=== PATIENT | female | born 1955 | race Caucasian/White ===

== ENCOUNTER 2019-11-24 07:50 | Outpatient (CLI) | payer BC, SELFPAY ==
--- NOTE | ~2019-11-24 | MM_ITS ---
EXAMINATION: MM screening [facility] BI w osei HISTORY: Screening mammogram TECHNIQUE: Craniocaudal and mediolateral oblique 3-D tomosynthesis images were obtained and synthetic 2-D images were generated. CAD analysis was submitted and interpreted. COMPARISON: 12/01/2018, 11/03/2018, 11/03/2017, 11/02/2016 BREAST PARENCHYMAL COMPOSITION: The breasts are heterogeneously dense, which may obscure small masses . FINDINGS: There is no evidence of suspicious mass, calcification, or architectural distortion to sugg est malignancy in either breast. There has been no suspicious interval change. IMPRESSION: 1. No mammographic evidence of malignancy. 2. Recommend routine screening mammography in one year. BI-RADS Category 1: Negative Reviewed, dictated and finalized at location A. ER
== END 2019-11-24 07:51 | disposition home or self-care (01) ==
PROVIDERS: PCP Family Medicine; Visit Provider Obstetrics & Gynecology
DX: Z12.31 Encounter for screening mammogram for malignant neoplasm of breast (principal)
CPT/HCPCS: 77063; 77067

== ENCOUNTER 2020-12-13 08:48 | Outpatient (CLI) | payer BC, SELFPAY ==
--- NOTE | ~2020-12-13 | DEXA_ITS ---
Bone Density Report Name: Kaylan Jones Age: 65 Sex: Female Ethnicity: White Date of : 1955 Indication: osteopenia; height loss; asthma or emphysema; hysterectomy; Referring Provider: MELODY MOREIRA Study: Bone densitometry was performed. Exam Date: December 13, 2020 Accession number: [id number] Bone Density: Region BMD T-score Z-score Classification AP Spine (L1-L4) 0.735 -2.8 -1.1 Osteoporosis Femoral Neck (Left) 0.625 -2.0 -0.5 Osteopenia Total Hip (Left) 0.783 -1.3 -0.1 Osteopenia Total Hip Bilateral Avg 0.781 -1.3 -0.1 Osteopenia Femoral Neck (Right) 0.637 -1.9 -0.4 Osteopenia Total Hip (Right) 0.779 -1.3 -0.1 Osteopenia World Health Organization criteria for BMD impression classify patients as: Normal (T-score at or above -1.0), Osteopenia (T-score between -1.0 and -2.5), or Osteoporosis (T-score at or below -2.5). 10-year Fracture Risk: FRAX not reported because: Some T-score for Spine Total or Hip Total or Femoral Neck at or below -2.5 Previous Exams: Region Exam Age BMD T-score BMD Change BMD Change Date g/cm2 vs Baseline vs Previous AP Spine(L1-L4) 12/13/2020 65 0.735 -2.8 -0.267(-26.7%) -0.052(-6.5%)* 11/03/2018 63 0.787 -2.4 -0.216(-21.5%) -0.008(-1.0%) 11/02/2016 61 0.795 -2.3 -0.208(-20.7%) -0.040(-4.8%)* 08/29/2014 59 0.835 -1.9 -0.167(-16.7%) -0.030(-3.5%)# 12/25/2011 56 0.866 -1.6 -0.137(-13.7%) -0.111(-11.4%) 09/16/2009 54 0.977 -0.6 -0.026(-2.6%)* -0.026(-2.6%)* 07/22/2007 52 1.003 -0.4 Total Hip(Left) 12/13/2020 65 0.783 -1.3 -0.145(-15.7%) -0.083(-9.6%)* 11/03/2018 63 0.866 -0.6 -0.062(-6.7%)# -0.009(-1.1%) 11/02/2016 61 0.875 -0.5 -0.053(-5.7%)# -0.025(-2.7%) 08/29/2014 59 0.900 -0.3 -0.028(-3.0%)# 0.016(1.8%)# 12/25/2011 56 0.884 -0.5 -0.044(-4.7%)# -0.033(-3.6%)# 09/16/2009 54 0.917 -0.2 -0.011(-1.2%) -0.011(-1.2%) 07/22/2007 52 0.928 -0.1 Total Hip(Right) 12/13/2020 65 0.779 -1.3 -0.144(-15.6%) -0.055(-6.5%)* 11/03/2018 63 0.834 -0.9 -0.090(-9.7%)# -0.004(-0.5%) 11/02/2016 61 0.838 -0.9 -0.085(-9.2%)# -0.039(-4.5%)* 08/29/2014 59 0.877 -0.5 -0.046(-5.0%)# -0.016(-1.8%)# 12/25/2011 56 0.893 -0.4 -0.030(-3.3%)# -0.084(-8.6%)# 09/16/2009 54 0.977 0.3 0.053(5.8%)* 0.053(5.8%)* 07/22/2007 52 0.923 -0.2 *Denotes significance at 95% confidence level, LSC for AP Spine = 0.022 g/cm2, LSC for Total Hip = 0.027 g/cm2 Clinical Information Provided by Patient:
--- NOTE | ~2020-12-13 | MM_ITS ---
EXAMINATION: MM screening [facility] BI w osei HISTORY: Screening mammogram TECHNIQUE: Craniocaudal and mediolateral oblique 3-D tomosynthesis images were obtained and synthetic 2-D images were generated. CAD analysis was submitted and interpreted. COMPARISON: 11/24/2019 bilateral digital screening mammogram 12/01/2018 diagnostic left digital mammogram 11/03/2018, 11/03/2017, 11/02/2016 bilateral digital screening mammogram examinations BREAST PARENCHYMAL COMPOSITION: The breasts are heterogeneously dense, which may obscure small masses . FINDINGS: Subtle microcalcifications are suggested in the upper aspect of each breast on MLO views. D iagnostic magnification views are recommended for better definition. Otherwise there is no evidence of suspicious mass, calcification, or architectural distortion to sugg est malignancy in either breast. There has been no other suspicious interval change. IMPRESSION: 1. Bilateral microcalcifications 2. Bilateral diagnostic mammography with magnification views is recommended BI-RADS Category 0: Incomplete: Needs additional imaging evaluation. Reviewed, dictated and finalized at location A. [employer]
== END 2020-12-13 08:49 | disposition home or self-care (01) ==
PROVIDERS: PCP Family Medicine; Visit Provider Obstetrics & Gynecology
DX: Z12.31 Encounter for screening mammogram for malignant neoplasm of breast (principal); R92.8 Other abnormal and inconclusive findings on diagnostic imaging of breast; M81.0 Age-related osteoporosis without current pathological fracture; M85.852 Other specified disorders of bone density and structure, left thigh; M85.851 Other specified disorders of bone density and structure, right thigh
CPT/HCPCS: 0001A; 77063; 77067; 77080; 91300

== ENCOUNTER 2020-12-13 13:50 | Outpatient (CLI) | payer BC, SELFPAY | END 2020-12-13 13:51 | disposition home or self-care (01) | LOC: ANHCOVIDVC 13:50 | PROVIDERS: PCP Family Medicine | DX: Z23 Encounter for immunization (principal) | CPT/HCPCS: 0001A; 91300 ==

== ENCOUNTER 2021-01-03 13:03 | Outpatient (CLI) | payer BC, SELFPAY | END 2021-01-03 13:04 | disposition home or self-care (01) | LOC: ANHCOVIDVC 13:03 | PROVIDERS: PCP Family Medicine | DX: Z23 Encounter for immunization (principal) | CPT/HCPCS: 0002A; 91300 ==

== ENCOUNTER 2021-01-10 11:17 | Outpatient (CLI) | payer BC, SELFPAY ==
--- NOTE | ~2021-01-10 | MMUS_ITS ---
EXAMINATION: MM diagnostic mammo BI, US breast BI complete HISTORY: Bilateral microcalcifications TECHNIQUE: Additional 3-D tomosynthesis images of both breasts were performed and synthetic 2-D image s were generated. Bilateral magnification views. CAD analysis was submitted and interpreted. High res olution breast ultrasound was performed. COMPARISON: 12/13/2020 bilateral digital screening mammogram FINDINGS: MAMMOGRAPHIC FINDINGS: Minimal benign calcification of the breasts is noted. No malignant calcification is evident. Solid nodular appearing fibroglandular stroma is noted. Bilateral complete breast ultrasound examinat ion was performed. ULTRASOUND: No suspicious mass or shadowing or other significant sonographic finding of either breast is detected . IMPRESSION: 1. No mammographic evidence of malignancy 2. Routine annual mammographic screening is recommended. BI-RADS Category 2: Benign finding(s). Reviewed, dictated and finalized at location A. IMPRESSION: 1. No mammographic evidence of malignancy 2. Routine annual mammographic screening is recommended. BI-RADS Category 2: Benign finding(s).
== END 2021-01-10 11:18 | disposition home or self-care (01) ==
LOC: ANHIMG 11:19
PROVIDERS: PCP Family Medicine; Visit Provider Obstetrics & Gynecology
DX: R92.0 Mammographic microcalcification found on diagnostic imaging of breast (principal)
CPT/HCPCS: 76641; 77066

== ENCOUNTER 2021-02-13 14:30 | Emergency (ER) | payer MEDICARE, SELFPAY ==
--- NOTE | ~2021-02-13 | XR_ITS ---
XR abdomen obstructive series DATE: 02/13/2021 16:31 INDICATION: Constipation TECHNIQUE: Supine and upright AP views COMPARISON: None FINDINGS: Nonspecific bowel gas pattern without evidence of obstruction. No intraperitoneal free air is evident. The psoas shadows are intact. No visceromegaly or significant abnormal calcification is n oted. Incidentally noted is a transitional lumbosacral vertebra. IMPRESSION: Nonspecific abdomen Reviewed, dictated and finalized at Location A. Reviewed, dictated and finalized at location A. IMPRESSION: Nonspecific abdomen
[2021-02-13 14:32] VITALS: BP 125/67; PULSE 76; RESP 18; TEMP 36.2; O2SAT 100
--- NOTE | 2021-02-13 16:48 | ED.GENADULT ---
HPI - General Adult General Chief complaint: Unspecified Stated complaint: SEVERE CONSTIPATION Time Seen by Provider: 02/13/21 16:19 Source: patient Mode of arrival: ambulatory Limitations: no limitations History of Present Illness HPI narrative: Patient presents the emergency department for ongoing constipation over the last couple of weeks. Reports she takes Benefiber daily. Also has taken MiraLAX the last couple of days. Reports she recently increased her dose of her calcium supplement which she thinks is contributing to her constipation. She had a normal sized bowel movement 5 days ago. Reports a small bowel movement yesterday. Denies fever, abdominal pain, vomiting, or hematochezia. Related Data Home Medications Medication Instructions Recorded Confirmed fexofenadine 180 mg tablet 180 mg PO DAILY 11/13/19 11/13/19 fluticasone furoate-vilanterol 1 inh INHALATION DAILY 02/13/21 [Breo Ellipta] Allergies Allergy/AdvReac Type Severity Reaction Status Date / Time No Known Allergies Allergy Verified 02/13/21 16:31 Review of Systems Review of Systems: Narrative: CONSTITUTIONAL: Denies fever GASTROINTESTINAL: Denies abdominal pain, nausea, vomiting All systems reviewed & are unremarkable except as noted in HPI and below PMFSH Past Medical History Medical History (Updated 02/13/21 @ 16:53 by Flower Salinas PA-C) Eczema Encounter for wellness examination in adult Hypothyroidism, unspecified Mixed hyperlipidemia Moderate persistent asthma, uncomplicated Osteopenia after menopause Osteoporosis T-score -2.8 spine, -2.0 left hip and -1.9 right hip on 12/13/2020 Polyp of colon Seasonal allergic rhinitis Trigger finger of thumb (~2014) Vitamin B12 deficiency anemia Surgical History Surgical History (Updated 11/13/19 @ 13:14 by Josette Nation MA) History of hysterectomy (~2003) Family History Family History (Updated 11/13/19 @ 13:18 by Josette Nation MA) Mother Hypertension Thyroid disorder Hyperlipidemia Alzheimer disease Father Diabetes mellitus Heart disease Hypertension Grandparent Heart disease Sibling Hypertension Pancreatitis Social History Social History (Updated 11/14/20 @ 13:22 by Josette Nation MA) Smoking status: Never smoker Alcohol intake: current Substance use: never Substance use type: does not use Exam Narrative: Exam Narrative: GENERAL: Well-appearing, well-nourished, and in no acute distress. HEAD: Normocephalic, atraumatic. EYES: EOMI. CHEST: Clear to auscultation. No respiratory distress. No wheezes rales or rhonchi HEART: Regular rate and rhythm. No murmur heard. Normal peripheral pulses. ABDOMEN: Soft, nontender, nondistended, normal active bowel sounds. EXTREMITIES: Normal range of motion. No edema. SKIN: Warm, dry, no rash. NEURO: No focal deficits. Alert and oriented x3. PSYCH: Normal mood and affect Course Vital Signs Vital signs: Vital Signs Temperature 97.2 F L 02/13/21 14:32 Pulse Rate 76 02/13/21 14:32 Respiratory Rate 18 02/13/21 14:32 Blood Pressure 125/67 02/13/21 14:32 Pulse Oximetry 100 02/13/21 14:32 Temperature 97.2 F L 02/13/21 14:32 Pulse Rate 76 02/13/21 14:32 Respiratory Rate 18 02/13/21 14:32 Blood Pressure 125/67 02/13/21 14:32 Pulse Oximetry 100 02/13/21 14:32 Medical Decision Making MDM Narrative Medical decision making narrative: Patient presents the emergency department for her ongoing issues with constipation over the last couple of weeks. He is afebrile and nontoxic-appearing. Abdominal exam is benign. Abdomen x-ray is without acute findings. Patient was instructed on care of constipation. She is to follow-up with her primary care doctor. She was given warnings to return to the ER Vital Signs Vital Signs: Vital Signs Temperature 97.2 F L 02/13/21 14:32 Pulse Rate 76 02/13/21 14:32 Respiratory Rate 18
== END 2021-02-13 16:58 | disposition home or self-care (01) ==
PROVIDERS: Emergency Provider Emergency Medicine; PCP Family Medicine
DX: K59.00 Constipation, unspecified (principal); E03.9 Hypothyroidism, unspecified; E78.2 Mixed hyperlipidemia; J45.40 Moderate persistent asthma, uncomplicated; M85.80 Other specified disorders of bone density and structure, unspecified site; M81.0 Age-related osteoporosis without current pathological fracture; D51.9 Vitamin B12 deficiency anemia, unspecified
CPT/HCPCS: 74019; 99283

== ENCOUNTER → 2021-09-01 08:53 | Outpatient (CLI) | payer MEDICARE, SELFPAY ==
--- NOTE | ~2021-09-01 | US_ITS ---
EXAMINATION: US thyroid EXAM DATE: 09/01/2021 09:36 INDICATION: Nontoxic goiter, unspecified. TECHNIQUE: Multiple grayscale and Doppler images of the thyroid were obtained (by a technologist who performed the scan) and subsequently reviewed. Individual nodules and recommendations may be reporte d in accordance with TI-RADS system as designated by the 2017 ACR White Paper TI-RADS committee. Comp rosa is made to prior examination from 04/29/2005. FINDINGS: Right thyroid lobe measures 3.4 x 1.2 x 1.1 cm, the left measuring 3.3 x 1.2 x 1.0 cm. There are priscilla ral subcentimeter thyroid category TR 4 nodules. Some echogenic foci in the left thyroid lobe nodule deep [place] of cystic components, typical of colloid cyst. IMPRESSION: Small thyroid nodules; Return to clinical follow-up and if additional palpable abnormalit y develops a repeat ultrasound can be obtained. Reviewed, dictated and finalized at location A. ING INSPECTOR IMPRESSION: Small thyroid nodules; Return to clinical follow-up and if addition al palpable abnormality develops a repeat ultrasound can be obtained.
== END ==
PROVIDERS: PCP Family Medicine; Visit Provider Internal Medicine Endocrinology, Diabetes & Metabolism
DX: E04.9 Nontoxic goiter, unspecified (principal)
CPT/HCPCS: 76536

== ENCOUNTER 2021-12-19 15:25 | Outpatient (CLI) | payer MEDICARE, SELFPAY ==
--- NOTE | ~2021-12-19 | MM_ITS ---
EXAMINATION: MM screening [facility] BI w osei HISTORY: Screening mammogram TECHNIQUE: Craniocaudal and mediolateral oblique 3-D tomosynthesis images were obtained and synthetic 2-D images were generated. Bilateral rotated lateral craniocaudal views. CAD analysis was submitted and interpreted. COMPARISON: bilateral diagnostic mammography and bilateral complete breast ultrasound 12/13/2020, 11/24/2019 bilateral screening mammogram examinations BREAST PARENCHYMAL COMPOSITION: The breasts are heterogeneously dense, which may obscure small masses . FINDINGS: There is no evidence of suspicious mass, calcification, or architectural distortion to sugg est malignancy in either breast. There has been no suspicious interval change. IMPRESSION: 1. No mammographic evidence of malignancy. 2. Recommend routine screening mammography in one year. BI-RADS Category 1: Negative Reviewed, dictated and finalized at location A.
== END 2021-12-19 15:26 | disposition home or self-care (01) ==
LOC: ANHIMG 15:26
PROVIDERS: PCP Family Medicine; Visit Provider Obstetrics & Gynecology
DX: Z12.31 Encounter for screening mammogram for malignant neoplasm of breast (principal)
CPT/HCPCS: 77063; 77067

== ENCOUNTER 2022-11-16 11:15 | Outpatient (CLI) | payer MEDICARE, SELFPAY ==
--- NOTE | 2022-11-16 11:30 | ECG_ITS ---
Measurements Intervals [place] Rate: 65 P: 69 ND: 136 QRS: -40 QRSD: 99 T: 42 QT: 401 QTc: 418 Interpretive Statements SINUS RHYTHM LEFT ANTERIOR SUPERIOR HEMIBLOCK MINIMAL ST DEPRESSION [0.025+ mV ST DEPRESSION] ABNORMAL ECG NO PREVIOUS ECG AVAILABLE FOR COMPARISON Electronically Signed On 11-16-2022 12:18:32 PAINTER HAND by Osmar Fong M.D.
== END 2022-11-16 11:16 | disposition home or self-care (01) ==
LOC: ANHCARD 11:17
PROVIDERS: PCP Family Medicine; Visit Provider Nurse Practitioner Family
DX: R07.9 Chest pain, unspecified (principal); R00.2 Palpitations; R94.31 Abnormal electrocardiogram [ECG] [EKG]
CPT/HCPCS: 93005

== ENCOUNTER 2022-11-24 09:25 | Outpatient (CLI) | payer MEDICARE, SELFPAY ==
--- NOTE | 2022-11-24 09:30 | EST_ITS ---
Patient Info Name: Kaylan Jones Age: 67 years : 1955 Gender: Female Ht: 63 in Wt: 115 lbs BSA: 1.52 m2 HR: 69 bpm BP: 135 / 90 mmHg Heart Rhythm: Sinus Rhythm Exam Date: 11/24/2022 9:51 AM Exam Location: [facility] Stress Patient Status: Outpatient Admit Date: 11/24/2022 Staff Ordering Physician: Jasmyne Phelps NP Attending Provider: Yonny Andino MD Exercise Technologist: Taina Hong CT Exercise Physician: Demetris Meyer DO Exam Type: CA stress test treadmill Study Info Indications R07.9 - Chest pain, unspecified R94.31 - Abnormal electrocardiogram ECG EKG A treadmill exercise stress test was performed. Summary 1. 1. Negative Renzo exercise stress test for ischemic ST changes by ECG criteria. 2. 2. Reduced functional capacity, achieving 7 METs of workload. 3. 3. Hypertensive response to exercise. 4. 4. Appropriate HR response to exercise. 5. 5. Appropriate HR recovery at 1 minute post exercise. 6. 6. No imaging with stress testing. 7. 7. Patient informed of the above results. Protocol: Renzo Stress ECG Details Stage: REST Duration (min): 1 min : 50 sec Speed (mph): 0.0 Grade (%): 0 HR (bpm): 71 SBP (mmHg): 135 DBP (mmHg): 90 METS: --- Stage: REST Duration (min): 5 min : 48 sec Speed (mph): 0.0 Grade (%): 0 HR (bpm): 75 SBP (mmHg): 135 DBP (mmHg): 90 METS: --- Stage: STAGE 1 Duration (min): 1 min : 0 sec Speed (mph): 1.7 Grade (%): 10 HR (bpm): 109 SBP (mmHg): 135 DBP (mmHg): 90 METS: --- Stage: STAGE 1 Duration (min): 2 min : 0 sec Speed (mph): 1.7 Grade (%): 10 HR (bpm): 121 SBP (mmHg): 135 DBP (mmHg): 90 METS: --- Stage: STAGE 1 Duration (min): 3 min : 0 sec Speed (mph): 1.7 Grade (%): 10 HR (bpm): 134 SBP (mmHg): 195 DBP (mmHg): 91 METS: --- Stage: STAGE 2 Duration (min): 1 min : 0 sec Speed (mph): 2.5 Grade (%): 12 HR (bpm): 139 SBP (mmHg): 195 DBP (mmHg): 91 METS: --- Stage: STAGE 2 Duration (min): 2 min : 0 sec Speed (mph): 2.5 Grade (%): 12 HR (bpm): 152 SBP (mmHg): 206 DBP (mmHg): 91 METS: --- Stage: STAGE 2 Duration (min): 2 min : 8 sec Speed (mph): 2.5 Grade (%): 12 HR (bpm): 154 SBP (mmHg): 206 DBP (mmHg): 91 METS: --- Stage: RECOVERY Duration (min): 0 min : 51 sec Speed (mph): 0.0 Grade (%): 0 HR (bpm): 131 SBP (mmHg): 206 DBP (mmHg): 91 METS: --- Stage: RECOVERY Duration (min): 1 min : 51 sec Speed (mph): 0.0 Grade (%): 0 HR (bpm): 109 SBP (mmHg): 206 DBP (mmHg): 91 METS: --- Stage: RECOVERY Duration (min): 2 min : 51 sec Speed (mph): 0.0 Grade (%): 0 HR (bpm): 102 SBP (mmHg): 158 DBP (mmHg): 90 METS: --- Stage: RECOVERY Duration (min): 2 min : 59 sec Speed (mph): 0.0 Grade (%): 0 HR (bpm
--- NOTE | 2022-11-25 15:25 | WPDHOLTEREM ---
Holter/Event Monitor Holter/Event Monitor Date of procedure: 11/24/22 Holter/Event Procedure: 24 Hr Holter Monitor Indications: Palpitations Conclusion: 1. 24 hour holter monitor on 11/24/22. 2. Underlying is sinus rhythm. HR range 41-156 bpm; average HR 70 bpm. HR at 156 bpm was at 13:10. 3. There are 74 premature supraventricular complexes and 4 supraventricular couplets. No supraventricular tachycardia. 4. There are 44 premature ventricular complexes. No ventricular tachycardia. 5. No sinoatrial or atrioventricular blocks. No significant pauses greater than 2 seconds. 6. Patient report symptoms of chest pain and fluttering which demonstrate sinus rhythm, HR range 57-129 bpm.
== END 2022-11-24 09:26 | disposition home or self-care (01) ==
PROVIDERS: PCP Family Medicine; Visit Provider Family Medicine
DX: R94.31 Abnormal electrocardiogram [ECG] [EKG] (principal); R07.9 Chest pain, unspecified; R00.2 Palpitations
CPT/HCPCS: 93017; 93225; 93226

== ENCOUNTER 2022-12-21 08:42 | Outpatient (CLI) | payer MEDICARE, SELFPAY ==
--- NOTE | ~2022-12-21 | DEXA_ITS ---
Bone Density Report Name: ROC ARELLANO Age: 67 Sex: Female Ethnicity: White Date of : 1955 Indication: postmenopausal osteoporosis; height loss; Referring Provider: FAHAD, JAYSON Padron Study: Bone densitometry was performed. Exam Date: December 21, 2022 Accession number: [id number] Bone Density: Region BMD T-score Z-score Classification AP Spine(L1-L4) 0.762 -2.6 -0.7 Osteoporosis Femoral Neck (Left) 0.617 -2.1 -0.5 Osteopenia Total Hip (Left) 0.760 -1.5 -0.2 Osteopenia Femoral Neck (Right) 0.632 -2.0 -0.3 Osteopenia Total Hip (Right) 0.752 -1.6 -0.2 Osteopenia Total Hip Mean 0.756 -1.6 -0.2 Osteopenia World Health Organization criteria for BMD impression classify patients as: Normal (T-score at or above -1.0), Osteopenia (T-score between -1.0 and -2.5), or Osteoporosis (T-score at or below -2.5). 10-year Fracture Risk: FRAX not reported because: Some T-score for Spine Total or Hip Total or Femoral Neck at or below -2.5 Previous Exams: Region Exam Age BMD T-score BMD Change BMD Change Date g/cm2 vs Baseline vs Previous AP Spine (L1-L4) 12/21/2022 67 0.762 -2.6 -0.033 (-4.2%) 0.027 (3.6%)* 12/13/2020 65 0.735 -2.8 -0.060 (-7.5%) -0.052 (-6.5%) 11/03/2018 63 0.787 -2.4 -0.008 (-1.0%) -0.008 (-1.0%) 11/02/2016 61 0.795 -2.3 Total Hip(Left) 12/21/2022 67 0.760 -1.5 -0.115 (-13.1% -0.023 (-2.9%) 12/13/2020 65 0.783 -1.3 -0.092 (-10.6% -0.083 (-9.6%) 11/03/2018 63 0.866 -0.6 -0.009 (-1.1%) -0.009 (-1.1%) 11/02/2016 61 0.875 -0.5 Total Hip(Right) 12/21/2022 67 0.752 -1.6 -0.086 (-10.3% -0.027 (-3.5%) 12/13/2020 65 0.779 -1.3 -0.059 (-7.0%) -0.055 (-6.5%) 11/03/2018 63 0.834 -0.9 -0.004 (-0.5%) -0.004 (-0.5%) 11/02/2016 61 0.838 -0.9 *Denotes significance at 95% confidence level, LSC for AP Spine = 0.022 g/cm2, LSC for Total Hip = 0.027 g/cm2 Clinical Information Provided by Patient: Has used the following medications: Vitamin D, Calcium Patient maximum height was 63.5 Menopause Age: 49 Drinks caffeinated beverages Onset of menses at age 12 Number of children 1 Impression: UNAPPROVED The patient has osteoporosis, based on the Total Spine T-score. The BMD for the Total Hip(Right) decreased, changing by -3.5% since the last DXA exam. Discussion: UNAPPROVED INCREASED RISK OF FRACTURE. BONE DENSITY IS UNDESIRABLY LOW AT ONE OR MORE SKELETAL SITES, CONSISTENT WITH POST
== END 2022-12-21 08:43 | disposition home or self-care (01) ==
PROVIDERS: PCP Family Medicine; Visit Provider Internal Medicine Endocrinology, Diabetes & Metabolism
DX: M81.0 Age-related osteoporosis without current pathological fracture (principal); M85.852 Other specified disorders of bone density and structure, left thigh; M85.851 Other specified disorders of bone density and structure, right thigh
CPT/HCPCS: 77080

== ENCOUNTER 2022-12-21 08:45 | Outpatient (CLI) | payer MEDICARE, SELFPAY ==
--- NOTE | ~2022-12-21 | MM_ITS ---
EXAMINATION: MM screening [facility] BI w osei HISTORY: Screening TECHNIQUE: Craniocaudal and mediolateral oblique 3-D tomosynthesis images were obtained and synthetic 2-D images were generated. CAD analysis was submitted and interpreted. COMPARISON: Comparison to multiple prior studies sequentially, with oldest reviewed study dated 11/03. BREAST PARENCHYMAL COMPOSITION: The breasts are heterogeneously dense, which may obscure small masses FINDINGS: There is no evidence of suspicious mass, calcification, or architectural distortion to sugg est malignancy in either breast. There has been no suspicious interval change. IMPRESSION: 1. No mammographic evidence of malignancy. 2. Recommend routine screening mammography in one year. BI-RADS Category 1: Negative Reviewed, dictated and finalized at location A.
== END 2022-12-21 08:46 | disposition home or self-care (01) ==
LOC: ANHIMG 08:46
PROVIDERS: PCP Family Medicine; Visit Provider Obstetrics & Gynecology
DX: Z12.31 Encounter for screening mammogram for malignant neoplasm of breast (principal)
CPT/HCPCS: 77063; 77067; 77080

== ENCOUNTER 2024-02-18 07:11 | Outpatient (CLI) | payer MEDICARE, SELFPAY ==
--- NOTE | ~2024-02-18 | MM_ITS ---
EXAMINATION: MM screening [facility] BI w osei HISTORY: Screening mammogram TECHNIQUE: Craniocaudal and mediolateral oblique 3-D tomosynthesis images were obtained and synthetic 2-D images were generated. CAD analysis was submitted and interpreted. COMPARISON: 12/21/2022, 12/19/2021 bilateral screening mammogram examinations BREAST PARENCHYMAL COMPOSITION: The breasts are heterogeneously dense, which may obscure small masses . FINDINGS: There is no evidence of suspicious mass, calcification, or architectural distortion to sugg est malignancy in either breast. There has been no suspicious interval change. IMPRESSION: 1. No mammographic evidence of malignancy. 2. Routine annual mammographic screening is recommended. BI-RADS Category 1: Negative Reviewed, dictated and finalized at location B.
== END 2024-02-18 07:12 | disposition home or self-care (01) ==
PROVIDERS: PCP Family Medicine; Visit Provider Obstetrics & Gynecology
DX: Z12.31 Encounter for screening mammogram for malignant neoplasm of breast (principal)
CPT/HCPCS: 77063; 77067

== ENCOUNTER 2025-02-19 08:41 | Outpatient (CLI) | payer MEDICARE, SELFPAY ==
--- OUTSIDE RECORDS SUMMARY | 2025-02-19 08:49 | XMS_ITS | Data Portability ---
Author Organization [facility] [place], Main Office Address [address] [place] [address] Assessment No assessment recorded. Plan of Treatment Reminders Order Date Submit Date Provider Last Modified By Organization Details Last Modified Time Details Appointments None recorded. Lab dexamethaso ne, serum 2022 023 [facility], [address], [place], [address], 3 09:03:42 cortisol, am, serum 2022 023 [facility], [address], [place], [address], 3 09:03:43 TSH + free T4, serum 2022 023 [facility], [address], [place], [address], 3 17:25:50 T3, free, serum or plasma 2022 023 [facility], [address], [place], [address], 3 17:25:49 vitamin B12 + folate, serum or blood 2022 023 [facility], [address], [place], [address], 3 17:25:48 CMP, serum or plasma 2022 023 [facility], [address], [place], [address], 3 17:25:46 Referral endocrinolo gy referral 2022 023 rosa maria Christine MD, [address], [address], [address], 3 12:09:58 Procedures None recorded. Surgeries None recorded. Imaging None recorded. Medication Orders Euthyrox 50 mcg tablet 2022 023 [id number], [address] [place], [address], 3 12:02:39 liothyronin e 5 mcg tablet 2022 023 [id number], [address] [place], [address], 3 12:03:03 dexamethaso ne 1 mg tablet 2022 023 [facility], [address] [place], [address], 3 12:09:00 Patient TargetsNo targets recorded. Patient InstructionsNo instructions recorded. Reason for Referral Endocrinology Referral for P ostmenopausal osteoporosis Referring Physician: Dulce Maria Garcia, Endocrinology, Encounter Date: 06/10/2023 Results Created Date Observation Date Name Description Value Unit Range Abnormal Flag Note LastModifiedBy Organization Detail LastModifiedTime 09/02/20 21 09/03/2021 TSH+F REE T4 TSH 0.48 mIU/L 0.40-4 .50 normal Not Available [facility] [address] [address], [place], [address], 09/03/2021 17:06:49 09/02/20 21 09/03/2021 TSH+F REE T4 T4, free 1.6 NG/dL 0.8-1. 8 normal Not Available [address] [address] [place], [address], 09/03/2021 17:06:49 09/02/20 21 09/03/2021 VITAM IN D,25- OH,TO SURAJ,I A vitamin D,25-oh,tota l,ia 43 NG/mL 30-100 normal Vitam in D Statu s 25-OH Vitam in D: Defic iency : <20 ng/mL Insuf ficie ncy: 20 - 29 ng/mL Optim al: > or = 30 ng/mL For 25-OH Vitam in D testi ng on patie nts on D2-zavala pplem entat ion and patie nts for whom quant itati on of D2 and D3 fract ions is requi red, the [facility] Assur eD(TM ) 25-OH VIT D, (D2,D 3), LC/MS /MS is recom batool d: order code 82994 (analilia ents >2yrs ). See Note 1 Note 1 For addit ional infor susan ruiz e refer to http: //[facility] Matt stDia gnost ics.c om/fa q/FAQ 199 (This link is being provi ded for infor ida carlson/ jose g key purpo ses only. ) Not Available [facility] [address] [address] [address], [place], [address], 09/03/2021 17:06:48 09/02/20 21 09/03/2021 T3, FREE T3, free 3.1 pg/mL 2.3-4. 2 normal Not Available [facility] [address] [address] [place], [address], 09/03/2021 17:06:47 09/02/20 21 09/03/2021 CORTI ABI, A.M. cortisol, A.M. 16.4 mcg/d L normal Refer ence Range 8 a.m. (7-9 a.m.) Speci men: 4.0-2 2.0 Not Available [facility] [address] [address] [place], [address], 09/03/2021 17:06:46 09/02/20 21 09/03/2021 THYRO ID PEROX IDASE ANTIB ODIES thyroid peroxidase antibodies 7 IU/mL <9 normal Not Available [address] [address] [place], [address], 09/03/2021 17:06:45 09/02/20 21 09/03/2021 COMPR EHENS SESAR METAB OLIC PANEL glucose 75 mg/dL 65-99 normal Fasti ng refer ence inter avtar Not Available [address], [address], 09/03/2021 17:06:45 09/02/20 21 09/03/2021 COMPR EHENS SESAR METAB OLIC PANEL urea nitrogen (BUN) 16 mg/dL 7-25 normal Not Available [address], [address], 09/03/2021 17:06:45 09/02/20 21 09/03/2021 COMPR EHENS SESAR METAB OLIC PANEL creatinine 0.73 mg/dL 0.50-0 .99 normal For patie nts >49 years of age, the refer ence limit for Creat inine is appro ximat jayjay 13% highe r for peopl e ident ified as Afric an-Am ashtyn n. Not Available [address] [address] [place], [address], 09/03/2021 17:06:45 09/02/20 21 09/03/2021 COMPR EHENS SESAR METAB OLIC PANEL eGFR non-afr. senegalese 86 mL/mi n/1.7 3m2 > or = 60 normal Not Available [address] [address] [place], [address], 09/03/2021 17:06:45 09/02/20 21 09/03/2021 COMPR EHENS SESAR METAB OLIC PANEL eGFR 100 mL/mi n/1.7 3m2 > or = 60 normal Not Available [address], [address], 09/03/2021 17:06:45 09/02/20 21 09/03/2021 COMPR EHENS SESAR METAB OLIC PANEL BUN/creatini ne ratio not applic able (calc ) 6-22 Not Available [address], [address], 09/03/2021 17:06:45 09/02/20 21 09/03/2021 COMPR EHENS SESAR METAB OLIC PANEL sodium 142 mmol/ L 135-14 6 normal Not Available [address], [address], 09/03/2021 17:06:45 09/02/20 21 09/03/2021 COMPR EHENS SESAR METAB OLIC PANEL potassium 3.5 mmol/ L 3.5-5. 3 normal Not Available [address], [address], 09/03/2021 17:06:45 09/02/20 21 09/03/2021 COMPR EHENS SESAR METAB OLIC PANEL chloride 106 mmol/ L 98-110 normal Not Available [address], [address], 09/03/2021 17:06:45 09/02/20 21 09/03/2021 COMPR EHENS SESAR METAB OLIC PANEL carbon dioxide 29 mmol/ L 20-32 normal Not Available [address], [address], 09/03/2021 17:06:45 09/02/20 21 09/03/2021 COMPR EHENS SESAR METAB OLIC PANEL calcium 9.3 mg/dL 8.6-10 .4 normal Not Available [address] [place], [address], 09/03/2021 17:06:45 09/02/20 21 09/03/2021 COMPR EHENS SESAR METAB OLIC PANEL protein, total 6.3 g/dL 6.1-8. 1 normal Not Available [address], [address], 09/03/2021 17:06:45 09/02/20 21 09/03/2021 COMPR EHENS SESAR METAB OLIC PANEL albumin 4.3 g/dL 3.6-5. 1 normal Not Available [address], [address], 09/03/2021 17:06:45 09/02/20 21 09/03/2021 COMPR EHENS SESAR METAB OLIC PANEL globulin 2.0 g/dL_ (calc ) 1.9-3. 7 normal Not Available [address], [address], 09/03/2021 17:06:45 09/02/20 21 09/03/2021 COMPR EHENS SESAR METAB OLIC PANEL albumin/glob ulin ratio 2.2 (calc ) 1.0-2. 5 normal Not Available [address], [address], 09/03/2021 17:06:45 09/02/20 21 09/03/2021 COMPR EHENS SESAR METAB OLIC PANEL bilirubin, total 1.5 mg/dL 0.2-1. 2 high Not Available [address], [address], 09/03/2021 17:06:45 09/02/20 21 09/03/2021 COMPR EHENS SESAR METAB OLIC PANEL alkaline phosphatase 63 U/L 37-153 normal Not Available [address] [address] [place], [address], 09/03/2021 17:06:45 09/02/20 21 09/03/2021 COMPR EHENS SESAR METAB OLIC PANEL AST 22 U/L 10-35 normal Not Available [address], [address], 09/03/2021 17:06:45 09/02/20 21 09/03/2021 COMPR EHENS SESAR METAB OLIC PANEL ALT 26 U/L 6-29 normal Not Available [address], [address], 09/03/2021 17:06:45 09/02/20 21 09/03/2021 PTH, INTAC T AND CALCI UM parathyroid hormone, intact 27 pg/mL 14-64 normal Inter preti ve Guide Intac t PTH Calci um ----- ----- ----- --- ----- ----- ----- -- Jamila l Parat hyroi d Jamila l Jamila l Hypop bebe yroid ism Low or Low Jamila l Low Hyper parat hyroi dism Prima ry Jamila l or High High Secon amy High Jamila l or Low Terti filippo High High Non-P bebe yroid Hyper calce julito Low or Low Jamila l High Not Available [address], [address], 09/03/2021 17:06:44 09/02/20 21 09/03/2021 PTH, INTAC T AND CALCI UM calcium 9.3 mg/dL 8.6-10 .4 normal Not Available [address], [address], 09/03/2021 17:06:44 09/08/20 21 09/09/2021 CALCI UM, 24 HOUR URINE (W/ CREAT ININE ) calcium/crea tinine ratio 285 mg/g_ creat 30-275 high Not Available [address], [address], 09/09/2021 13:56:56 09/08/20 21 09/09/2021 CALCI UM, 24 HOUR URINE (W/ CREAT ININE ) calcium, 24 hour urine 236 mg/24 _h normal Refer ence Range 35-25 0 Low calci um diet 35-20 0 Not Available [address], [address], 09/09/2021 13:56:56 09/08/20 21 09/09/2021 CALCI UM, 24 HOUR URINE (W/ CREAT ININE ) creatinine, 24 hour urine 0.83 g/24_ h 0.50-2 .15 normal Not Available [facility] [address], [address], 09/09/2021 13:56:56 04/17/20 22 04/18/2022 TSH+F REE T4 TSH 0.83 mIU/L 0.40-4 .50 normal Not Available [address], [address], 04/18/2022 04:20:26 04/17/20 22 04/18/2022 TSH+F REE T4 T4, free 1.4 NG/dL 0.8-1. 8 normal Not Available [address], [address], 04/18/2022 04:20:26 04/17/20 22 04/18/2022 VITAM IN D,25- OH,TO SURAJ,I A vitamin D,25-oh,tota l,ia 57 NG/mL 30-100 normal Vitam in D Statu s 25-OH Vitam in D: Defic iency : <20 ng/mL Insuf ficie ncy: 20 - 29 ng/mL Optim al: > or = 30 ng/mL For 25-OH Vitam in D testi ng on patie nts on D2-zavala pplem entat ion and patie nts for whom quant itati on of D2 and D3 fract ions is requi red, the [facility] Assur eD(TM ) 25-OH VIT D, (D2,D 3), LC/MS /MS is recom batool d: order code 79619 (analilia ents >2yrs ). See Note 1 Note 1 For addit ional infor susan ruiz refer to http: //[facility] luciano ics.c om/fa q/FAQ 199 (This link is being provi ded for infor ida carlson/ jose g key purpo ses only. ) Not Available [address], [address], 04/18/2022 04:20:26 04/17/20 22 04/18/2022 T3, FREE T3, free 2.6 pg/mL 2.3-4. 2 normal Not Available [address], [address], 04/18/2022 04:20:25 04/17/20 22 04/18/2022 COMPR EHENS SESAR METAB OLIC PANEL glucose 82 mg/dL 65-99 normal Fasti ng refer ence inter avtar Not Available [address], [address], 04/18/2022 04:20:25 04/17/20 22 04/18/2022 COMPR EHENS SESAR METAB OLIC PANEL urea nitrogen (BUN) 20 mg/dL 7-25 normal Not Available [address], [address], 04/18/2022 04:20:25 04/17/20 22 04/18/2022 COMPR EHENS SESAR METAB OLIC PANEL creatinine 0.84 mg/dL 0.50-1 .05 normal Not Available [address], [address], 04/18/2022 04:20:25 04/17/20 22 04/18/2022 COMPR EHENS SESAR METAB OLIC PANEL eGFR 77 mL/mi n/1.7 3m2 > or = 60 normal The eGFR is based on the CKD-E PI 2020 equat ion. To calcu late the new eGFR from a previ ous Creat inine or Cysta tin C resul t, go to https ://skip armenta.dinora gramajo/eduard pastrana s/ kdoqi /gfr% 5Fcal culat or Not Available [address], [address], 04/18/2022 04:20:25 04/17/20 22 04/18/2022 COMPR EHENS SESAR METAB OLIC PANEL BUN/creatini ne ratio not applic able (calc ) 6-22 Not Available [address], [address], 04/18/2022 04:20:25 04/17/20 22 04/18/2022 COMPR EHENS SESAR METAB OLIC PANEL sodium 143 mmol/ L 135-14 6 normal Not Available [address], [address], 04/18/2022 04:20:25 04/17/20 22 04/18/2022 COMPR EHENS SESAR METAB OLIC PANEL potassium 4.1 mmol/ L 3.5-5. 3 normal Not Available [address], [address], 04/18/2022 04:20:25 04/17/20 22 04/18/2022 COMPR EHENS SESAR METAB OLIC PANEL chloride 106 mmol/ L 98-110 normal Not Available [address], [address], 04/18/2022 04:20:25 04/17/20 22 04/18/2022 COMPR EHENS SESAR METAB OLIC PANEL carbon dioxide 30 mmol/ L 20-32 normal Not Available [address], [address], 04/18/2022 04:20:25 04/17/20 22 04/18/2022 COMPR EHENS SESAR METAB OLIC PANEL calcium 9.4 mg/dL 8.6-10 .4 normal Not Available [facility] [address], [address], 04/18/2022 04:20:25 04/17/20 22 04/18/2022 COMPR EHENS SESAR METAB OLIC PANEL protein, total 6.8 g/dL 6.1-8. 1 normal Not Available [address], [address], 04/18/2022 04:20:25 04/17/20 22 04/18/2022 COMPR EHENS SESAR METAB OLIC PANEL albumin 4.4 g/dL 3.6-5. 1 normal Not Available [address], [address], 04/18/2022 04:20:25 04/17/20 22 04/18/2022 COMPR EHENS SESAR METAB OLIC PANEL globulin 2.4 g/dL_ (calc ) 1.9-3. 7 normal Not Available [address], [address], 04/18/2022 04:20:25 04/17/20 22 04/18/2022 COMPR EHENS SESAR METAB OLIC PANEL albumin/glob ulin ratio 1.8 (calc ) 1.0-2. 5 normal Not Available [address], [address], 04/18/2022 04:20:25 04/17/20 22 04/18/2022 COMPR EHENS SESAR METAB OLIC PANEL bilirubin, total 1.5 mg/dL 0.2-1. 2 high Not Available [facility] [address], [address], 04/18/2022 04:20:25 04/17/20 22 04/18/2022 COMPR EHENS SESAR METAB OLIC PANEL alkaline phosphatase 44 U/L 37-153 normal Not Available [facility] [address], [address], 04/18/2022 04:20:25 04/17/20 22 04/18/2022 COMPR EHENS SESAR METAB OLIC PANEL AST 16 U/L 10-35 normal Not Available [address], [address], 04/18/2022 04:20:25 04/17/20 22 04/18/2022 COMPR EHENS SESAR METAB OLIC PANEL ALT 12 U/L 6-29 normal Not Available [address], [address], 04/18/2022 04:20:25 04/17/20 22 04/18/2022 PTH, INTAC T AND CALCI UM parathyroid hormone, intact 31 pg/mL 16 normal Inter preti ve Guide Intac t PTH Calci um ----- ----- ----- --- ----- ----- ----- -- Jamila l Parat hyroi d Jamila l Jamila l Hypop bebe yroid ism Low or Low Jamila l Low Hyper parat hyroi dism Prima ry Jamila l or High High Secon amy High Jamila l or Low Terti filippo High High Non-P bebe yroid Hyper calce julito Low or Low Jamila l High Not Available [address], [address], 04/18/2022 04:20:24 04/17/20 22 04/18/2022 PTH, INTAC T AND CALCI UM calcium 9.4 mg/dL 8.6-10 .4 normal Not Available [address], [address], 04/18/2022 04:20:24 12/29/19 23 12/29/2022 PTH, INTAC T AND CALCI UM parathyroid hormone, intact 33 pg/mL 16 normal Inter preti ve Guide Intac t PTH Calci um ----- ----- ----- --- ----- ----- ----- -- Jamila l Parat hyroi d Jamila l Jamila l Hypop bebe yroid ism Low or Low Jamila l Low Hyper parat hyroi dism Prima ry Jamila l or High High Secon amy High Jamila l or Low Terti filippo High High Non-P bebe yroid Hyper calce julito Low or Low Jamila l High Not Available [address], [address], 12/29/2022 17:59:21 12/29/19 23 12/29/2022 PTH, INTAC T AND CALCI UM calcium 9.7 mg/dL 8.6-10 .4 normal Not Available [address], [address], 12/29/2022 17:59:21 12/29/19 23 12/29/2022 PHOSP HATE ( PHOSP HORUS ) phosphate ( phosphorus) 3.9 mg/dL 2.1-4. 3 normal Not Available [address], [address], 12/29/2022 17:59:22 12/29/19 23 12/29/2022 COMPR EHENS SESAR METAB OLIC PANEL glucose 78 mg/dL 65-99 normal Fasti ng refer ence inter avtar Not Available [address], [address], 12/29/2022 17:59:22 12/29/19 23 12/29/2022 COMPR EHENS SESAR METAB OLIC PANEL urea nitrogen (BUN) 20 mg/dL 7-25 normal Not Available [address], [address], 12/29/2022 17:59:22 12/29/19 23 12/29/2022 COMPR EHENS SESAR METAB OLIC PANEL creatinine 0.84 mg/dL 0.50-1 .05 normal Not Available [address], [address], 12/29/2022 17:59:22 12/29/19 23 12/29/2022 COMPR EHENS SESAR METAB OLIC PANEL eGFR 77 mL/mi n/1.7 3m2 > or = 60 normal The eGFR is based on the CKD-E PI 2020 equat ion. To calcu late the new eGFR from a previ ous Creat inine or Cysta tin C resul t, go to https ://skip w.marti portilloy.o avila/pr isaakess gamalielal s/ kdoqi /gfr% 5Fcal culat or Not Available [address], [address], 12/29/2022 17:59:22 12/29/19 23 12/29/2022 COMPR EHENS SESAR METAB OLIC PANEL BUN/creatini ne ratio NOT APPLIC ABLE (calc ) 6-22 Not Available [address], [address], 12/29/2022 17:59:22 12/29/19 23 12/29/2022 COMPR EHENS SESAR METAB OLIC PANEL sodium 138 mmol/ L 135-14 6 normal Not Available [address], [address], 12/29/2022 17:59:22 12/29/19 23 12/29/2022 COMPR EHENS SESAR METAB OLIC PANEL potassium 3.9 mmol/ L 3.5-5. 3 normal Not Available [address], [address], 12/29/2022 17:59:22 12/29/19 23 12/29/2022 COMPR EHENS SESAR METAB OLIC PANEL chloride 100 mmol/ L 98-110 normal Not Available [address], [address], 12/29/2022 17:59:22 12/29/19 23 12/29/2022 COMPR EHENS SESAR METAB OLIC PANEL carbon dioxide 30 mmol/ L 20-32 normal Not Available [address], [address], 12/29/2022 17:59:22 12/29/19 23 12/29/2022 COMPR EHENS SESAR METAB OLIC PANEL calcium 9.7 mg/dL 8.6-10 .4 normal Not Available [address], [address], 12/29/2022 17:59:22 12/29/19 23 12/29/2022 COMPR EHENS SESAR METAB OLIC PANEL protein, total 7.1 g/dL 6.1-8. 1 normal Not Available [address], [address], 12/29/2022 17:59:22 12/29/19 23 12/29/2022 COMPR EHENS SESAR METAB OLIC PANEL albumin 4.7 g/dL 3.6-5. 1 normal Not Available [address], [address], 12/29/2022 17:59:22 12/29/19 23 12/29/2022 COMPR EHENS SESAR METAB OLIC PANEL globulin 2.4 g/dL_ (calc ) 1.9-3. 7 normal Not Available [address], [address], 12/29/2022 17:59:22 12/29/19 23 12/29/2022 COMPR EHENS SESAR METAB OLIC PANEL albumin/glob ulin ratio 2.0 (calc ) 1.0-2. 5 normal Not Available [address], [address], 12/29/2022 17:59:22 12/29/19 23 12/29/2022 COMPR EHENS SESAR METAB OLIC PANEL bilirubin, total 1.6 mg/dL 0.2-1. 2 high Not Available [address], [address], 12/29/2022 17:59:22 12/29/19 23 12/29/2022 COMPR EHENS SESAR METAB OLIC PANEL alkaline phosphatase 58 U/L 37-153 normal Not Available [address], [address], 12/29/2022 17:59:22 12/29/19 23 12/29/2022 COMPR EHENS SESAR METAB OLIC PANEL AST 20 U/L 10-35 normal Not Available [address], [address], 12/29/2022 17:59:22 12/29/19 23 12/29/2022 COMPR EHENS SESAR METAB OLIC PANEL ALT 19 U/L 6-29 normal Not Available [address], [address], 12/29/2022 17:59:22 12/29/19 23 12/29/2022 THYRO ID PEROX IDASE ANTIB ODIES thyroid peroxidase antibodies 3 IU/mL <9 normal Not Available [address], [address], 12/29/2022 17:59:23 12/29/19 23 12/29/2022 VITAM IN B12/F OLATE , SERUM PANEL vitamin B12 1231 pg/mL 200-11 00 high Not Available [address], [address], 12/29/2022 17:59:24 12/29/19 23 12/29/2022 VITAM IN B12/F OLATE , SERUM PANEL folate, serum 11.1 NG/mL normal Refer ence Range Low: <3.4 Borde rline : 3.4-5 .4 Jamila l: >5.4 Not Available [address], [address], 12/29/2022 17:59:24 12/29/19 23 12/29/2022 T3, FREE T3, free 2.8 pg/mL 2.3-4. 2 normal Not Available [facility] [address], [address], 12/29/2022 17:59:25 12/29/19 23 12/29/2022 VITAM IN D,25- OH,TO SURAJ,I A vitamin D,25-oh,tota l,ia 35 NG/mL 30-100 normal Vitam in D Statu s 25-OH Vitam in D: Defic iency : <20 ng/mL Insuf ficie ncy: 20 - 29 ng/mL Optim al: > or = 30 ng/mL For 25-OH Vitam in D testi ng on patie nts on D2-zavala pplem entat ion and patie nts for whom quant itati on of D2 and D3 fract ions is requi red, the [facility] Assur eD(TM ) 25-OH VIT D, (D2,D 3), LC/MS /MS is recom batool d: order code 20856 (analilia ents >2yrs ). See Note 1 Note 1 For addit ional infor susan ruiz refer to http: //trish Carroll[facility] gnost ics.c om/fa q/FAQ 199 (This link is being provi ded for infor ida carlson/ jose g key purpo ses only. ) Not Available [facility] [address], [address], 12/29/2022 17:59:25 12/29/19 23 12/29/2022 TSH+F REE T4 TSH 0.53 mIU/L 0.40-4 .50 normal Not Available [facility] [address], [address], 12/29/2022 17:59:26 12/29/19 23 12/29/2022 TSH+F REE T4 T4, free 1.6 NG/dL 0.8-1. 8 normal Not Available [facility] [address] [place], [address], 12/29/2022 17:59:26 01/19/2001/29/2023 DEXAM ETHAS ONE dexamethason e 141 NG/dL Refer ence Range s for Dexam ethas one: Basel ine: Less than 20 ng/dL 1 mg dexam ethas one overn ight: 180-5 50 ng/dL (8:00 -10:0 0 AM) This test was devel oped and its meryl tical perfo rmanc e emily cteri stics have been deter mined by [facility] jacey Martínezi liz Salomon . It has not been clear ed or appro lew by FDA. This assay has been valid ated pursu ant to the CLIA regul ation s and is used for clini pratima purpo ses. Not Available [facility] [address], [address], 01/29/2023 09:03:42 01/19/2001/29/2023 CORTI ABI, A.M. cortisol, A.M. 1.0 mcg/d L low Refer ence Range 8 a.m. (7-9 a.m.) Speci men: 4.0-2 2.0 Not Available [facility] [address], [address], 01/29/2023 09:03:43 04/30/2005/12/2023 COMPR EHENS SESAR METAB OLIC PANEL glucose 85 mg/dL 65-99 normal Fasti ng refer ence inter avtar Not Available [facility] [address] [place], [address], 05/12/2023 17:25:46 04/30/2005/12/2023 COMPR EHENS SESAR METAB OLIC PANEL urea nitrogen (BUN) 22 mg/dL 7-25 normal Not Available [facility] [address], [address], 05/12/2023 17:25:46 04/30/20 23 05/12/2023 COMPR EHENS SESAR METAB OLIC PANEL creatinine 0.93 mg/dL 0.50-1 .05 normal Not Available [address], [address], 05/12/2023 17:25:46 04/30/20 23 05/12/2023 COMPR EHENS SESAR METAB OLIC PANEL eGFR 67 mL/mi n/1.7 3m2 > or = 60 normal The eGFR is based on the CKD-E PI 2020 equat ion. To calcu late the new eGFR from a previ ous Creat inine or Cysta tin C resul t, go to https ://skip armenta.dinora gramajo/eduard pastrana s/ kdoqi /gfr% 5Fcal culat or Not Available [address], [address], 05/12/2023 17:25:46 04/30/20 23 05/12/2023 COMPR EHENS SESAR METAB OLIC PANEL BUN/creatini ne ratio NOT APPLIC ABLE (calc ) 6-22 Not Available [address], [address], 05/12/2023 17:25:46 04/30/20 23 05/12/2023 COMPR EHENS SESAR METAB OLIC PANEL sodium 138 mmol/ L 135-14 6 normal Not Available [address], [address], 05/12/2023 17:25:46 04/30/20 23 05/12/2023 COMPR EHENS SESAR METAB OLIC PANEL potassium 3.7 mmol/ L 3.5-5. 3 normal Not Available [address], [address], 05/12/2023 17:25:46 04/30/20 23 05/12/2023 COMPR EHENS SESAR METAB OLIC PANEL chloride 103 mmol/ L 98-110 normal Not Available [address], [address], 05/12/2023 17:25:46 04/30/20 23 05/12/2023 COMPR EHENS SESAR METAB OLIC PANEL carbon dioxide 28 mmol/ L 20-32 normal Not Available [address], [address], 05/12/2023 17:25:46 04/30/20 23 05/12/2023 COMPR EHENS SESAR METAB OLIC PANEL calcium 9.4 mg/dL 8.6-10 .4 normal Not Available [address], [address], 05/12/2023 17:25:46 04/30/20 23 05/12/2023 COMPR EHENS SESAR METAB OLIC PANEL protein, total 6.9 g/dL 6.1-8. 1 normal Not Available [address], [address], 05/12/2023 17:25:46 04/30/20 23 05/12/2023 COMPR EHENS SESAR METAB OLIC PANEL albumin 4.4 g/dL 3.6-5. 1 normal Not Available [address], [address], 05/12/2023 17:25:46 04/30/20 23 05/12/2023 COMPR EHENS SESAR METAB OLIC PANEL globulin 2.5 g/dL_ (calc ) 1.9-3. 7 normal Not Available [address], [address], 05/12/2023 17:25:46 04/30/20 23 05/12/2023 COMPR EHENS SESAR METAB OLIC PANEL albumin/glob ulin ratio 1.8 (calc ) 1.0-2. 5 normal Not Available [address], [address], 05/12/2023 17:25:46 04/30/20 23 05/12/2023 COMPR EHENS SESAR METAB OLIC PANEL lanre [id number]||2025-02-19 12:32:00|MM_ITS|BURKT|Imaging|[id number]|"EXAMINATION: MM screening donis BI w osei HISTORY: Screening TECHNIQUE: Craniocaudal and mediolateral oblique 3-D tomosynthesis images were obtained and synthetic 2-D images were generated. CAD analysis was submitted and interpreted. COMPARISON: Comparison to multiple prior studies sequentially, with oldest reviewed study dated 11/24. BREAST PARENCHYMAL COMPOSITION: Dense: The breasts are heterogeneously dense, which may obscure small masses FINDINGS: There is no evidence of suspicious mass, calcification, or architectural distortion to sugg est malignancy in either breast. There has been no suspicious interval change. IMPRESSION: 1. No mammographic evidence of malignancy. 2. Recommend routine screening mammography in one year. BI-RADS Category 1: Negative Reviewed, dictated and finalized at location B. IMPRESSION: 1. No mammographic evidence of malignancy. 2. Recommend routine screening mammography in one year. BI-RADS Category 1: Negative "
== END 2025-02-19 08:42 | disposition home or self-care (01) ==
LOC: ANHIMG 08:44
PROVIDERS: PCP Family Medicine; Visit Provider Obstetrics & Gynecology
DX: Z12.31 Encounter for screening mammogram for malignant neoplasm of breast (principal)
CPT/HCPCS: 77063; 77067

== ENCOUNTER 2025-06-28 11:20 | Outpatient (CLI) | payer MEDICARE, SELFPAY ==
--- NOTE | ~2025-06-28 | XR_ITS ---
EXAMINATION: XR foot LT min 3V, 06/28/2025 11:25 CDT HISTORY: Pain in left foot since wednesday, hard to walk on COMPARISON: No comparisons available. Findings: No acute fracture or malalignment. No significant degenerative changes. Soft tissues unremarkable. Impression: No acute fracture or malalignment. Reviewed, dictated and finalized at location A. Impression: No acute fracture or malalignment.
== END 2025-06-28 11:21 | disposition home or self-care (01) ==
LOC: GOSHIMG 11:20
PROVIDERS: PCP Family Medicine; Visit Provider Family Medicine
DX: M79.672 Pain in left foot (principal)
CPT/HCPCS: 73630